=== PATIENT | male | born 2005 | race Caucasian/White ===

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

== ENCOUNTER 2025-01-01 18:55 | Emergency (ER) | payer OTHER, SELFPAY ==
--- NOTE | ~2025-01-01 | XR_ITS ---
EXAMINATION: XR chest 1V portable 01/01/2025 22:02 INDICATION: Viral syndrome PROCEDURE: AP portable chest COMPARISON: No prior studies for comparison. FINDINGS: The lungs are clear. The cardiomediastinal silhouette is within normal limits. There are no pleural effusions. There is no pneumothorax suspected. IMPRESSION: 1: NO ACUTE CARDIOPULMONARY DISEASE. Reviewed, dictated and finalized at location O.
--- NOTE | ~2025-01-01 | CT_ITS ---
EXAMINATION: CT abdomen pelvis w con DATE: 01/01/2025 22:08 INDICATION: Left upper quadrant abdominal pain TECHNIQUE: Computed tomography (CT) of the abdomen and pelvis was performed with 100 mL Omnipaque-350 intravenous contrast. Automated exposure control and iterative reconstruction technique were employed. The dose-length product was 224.55 mGy-cm. COMPARISON: None FINDINGS: Lung bases are clear. Visualized inferior heart appears normal. No pericardial or pleural effusion. Liver, gallbladder, spleen, pancreas, bilateral adrenal glands and kidneys are normal. Bowels including the appendix are normal. Bladder is normal. No free intraperitoneal gas or fluid. No pathologically enlarged abdominal or pelvic lymphadenopathy. Bones are unremarkable. IMPRESSION: 1. No acute intra-abdominal/pelvic process. Reviewed, dictated and finalized at location A.
--- OUTSIDE RECORDS SUMMARY | 2025-01-01 17:30 | XMS_ITS | Encounter Summary ---
Author Organization [facility] Healthcare Address [address] [place] [address] Care Team Providers Care Passport Support Associate Name Role Phone Johana De La O MD Primary Care Provider [phone] Reason for Visit * Reason Comments Cold Symptoms Vomiting, waking up drenched in sweat, abdominal pain, Was smoking but quit cold turkey 5 days ago, Was exposed to mono, he lifts weightWeight loss in the last week, 10 pounds, Encounter Details Date Type Department Care Team (Late st Contact Info) Description 01/01/2025 5:30 PM CDT Office Visit 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 Gender Identity Not on file Sexual Orientation Not on file documented as of this encounter Last Filed Vital Signs Vital Sign Reading Time Taken Comments Blood Pressure 126/79 01/01/2025 5:56 PM CDT Pulse 73 01/01/2025 5:56 PM CDT Temperature 36.8 C (98.3 F) 01/01/2025 5:56 PM CDT Respiratory Rate 18 01/01/2025 5:56 PM CDT Oxygen Saturation 98% 01/01/2025 5:56 PM CDT Inhaled Oxygen Concentration - - Weight 69.3 kg (152 lb 11.2 oz) 01/01/2025 5:56 PM CDT Height 185.4 cm (6' 0.99) 01/01/2025 5:56 PM CD T Body Mass Index 20.15 01/01/2025 5:56 PM CDT documented in this encounter Plan of Treatment Not on file documented as of this encounter Visit Diagnoses Diagnosis Abdominal pain- Primary Abdominal pain, unspecified site Chest pain, unspecified type Syncope, unspecified syncope type Exposure to mononucleosis syndrome Withdrawal from other stimulant drug documented in this encounter Historical Medications * This list may reflect changes made after this encounter. ALPRAZolam (XANAX) 0.25 mg tablet Take 1 tablet (0.25 mg total) by mouth nightly as needed for anxiety added in this encounter Care Teams Passport Support Associate Relationship Specialty Start Date End Date Johana De La O MD [address] [place] [address] PCP - General Pediatrics 02/16/19 documented as of this encounter
--- OUTSIDE RECORDS SUMMARY | 2025-01-01 17:30 | XMS_ITS | Encounter Summary ---
Author Organization [facility] Healthcare Address [address] [place] [address] Care Team Providers Care Side Guider Name Role Phone Johana De La O MD Primary Care Provider [phone] Reason for Visit * Reason Comments Cold Symptoms Vomiting, waking up drenched in sweat, abdominal pain, Was smoking but quit cold turkey 5 days ago, Was exposed to mono, he lifts weightWeight loss in the last week, 10 pounds, Encounter Details Date Type Department Care Team (Late st Contact Info) Description 01/01/2025 5:30 PM CDT Office Visit [facility] at [address] [address] Elizabeth Rogers NP [address] [place] [address] [address] [place] [address] Abdominal pain (Primary Dx); Chest pain, unspecified type; Syncope, unspecified syncope type; Exposure to mononucleosis syndrome; Withdrawal from other stimulant drug Social History Tobacco Use Types Packs/Day Years Used Date Smoking Tobacco: Never Smokeless Tobacco: Never Sex and Gender Information Value Date Recorded Sex Assigned at Not on file 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
--- OUTSIDE RECORDS SUMMARY | 2025-01-01 18:57 | XMS_ITS | Clinical Summary ---
Author Organization [facility] Address [address] [place] [address] Phone Care Team Providers Care Service Desk Manager Name Role Phone Kassi Gill MD Primary Care Provider [phone] Allergies No known active allergies Medications No known medications Family History Relation Name Status Comments Brother Alive Father Alive Mother Alive Social History Tobacco Use Types Packs/Day Years Used Date Smoking Tobacco: Never Smokeless Tobacco: Never Alcohol Use Standard Drinks/Week Comments Never 0 (1 standard drink = 0.6 oz pur e alcohol) Adolescent Education Answer Date Record ed Getting School Help Needed Not on file 12/01 Sex and Gender Information Value Date Recorded Sex Assigned at Not on file 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 Gender Identity Not on file Sexual Orientation Not on file Last Filed Vital Signs Vital Sign Reading Time Taken Comments Blood Pressure 134/88 07/02/2021 12:59 PM CANNING MACHINE OPERATOR Pulse 72 07/02/2021 12:59 PM CANNING MACHINE OPERATOR Temperature 36.7 C (98.1 F) 07/02/2021 12:59 PM CANNING MACHINE OPERATOR Respiratory Rate 12 07/02/2021 12:59 PM CANNING MACHINE OPERATOR Oxygen Saturation 100% 07/02/2021 12:59 PM CANNING MACHINE OPERATOR Inhaled Oxygen Concentration - - Weight 59 kg (130 lb 1.1 oz) 07/02/2021 12:59 PM CANNING MACHINE OPERATOR Height 177.8 cm (5' 10) 07/02/2021 12:59 PM CANNING MACHINE OPERATOR Body Mass Index 18.66 07/02/2021 12:59 PM CANNING MACHINE OPERATOR Plan of Treatment Health Maintenance Due Date Last Done Comments CHLAMYDIA SCREENING (ANNUAL) 11-24 YEARS 07/26/2015 HPV VACCINES (1 - Male 3-dose series) 07/26/2019 DTAP/TDAP/TD VACCINES (1 - Tdap) 07/26/2023 HEPATITIS B VACCINES (1 of 3 - 19+ 3-dose series) 06/28 INFLUENZA VACCINE (#1) 2024 Insurance BENEFIT PLANS BENEFIT PLANS Care Teams Service Desk Manager Relationship Specialty Start Date End Date Kassi Gill MD [address] [place] [address] PCP - General Pediatrics 07/02/21
--- OUTSIDE RECORDS SUMMARY | 2025-01-01 18:57 | XMS_ITS | Clinical Summary ---
Author Organization [address] [address] Care Team Providers Care Pressure Washer Name Role Phone Johana De La O MD Primary Care Provider [phone] Allergies No known active allergies Medications sertraline (ZOLOFT) 100 mg tablet Take 1 tablet (100 mg total) by mouth daily 4 Active benzonatate (TESSALON) 200 mg capsuleIndicatio ns:Acute lower respiratory infection Take 1 capsule (200 mg total) by mouth 3 (three) times a day as needed for cough keep tessalon out of reach of children, especially children under the age of 10, due to possible serious risk such as if ingested by children under the age of 10. 30 capsule 4 Active Additional Information Patient not taking.Reported on 01/01/2025 ALPRAZolam (XANAX) 0.25 mg tablet Take 1 tablet (0.25 mg total) by mouth nightly as needed for anxiety Active Active Problems Problem Noted Date Diagnosed Date Open fracture of tuft of distal phalanx of finge r 11/19/2020 Encounters Date Type Department Care Team Description 01/01/2025 5:30 PM CDT Office Visit [facility] at [address] [address] Elizabeth Rogers NP Abdominal pain (Primary Dx); Chest pain, unspecified type; Syncope, unspecified syncope type; Exposure to mononucleosis syndrome; Withdrawal from other stimulant drug from Last 3 Months Medical History Medical History Date Comments Asthma Family History Medical History Relation Name Comments No Known Problems Father No Known Problems Mother Relation Name Status Comments Father Alive Mother Alive Social History Tobacco Use Types Packs/Day Years Used Date Smoking Tobacco: Never Smokeless Tobacco: Never Sex and Gender Information Value Date Recorded Sex Assigned at Not on file 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 Gender Identity Not on file Sexual Orientation Not on file Obstetrics History Last Filed Vital Signs Vital Sign Reading [...] Mass Index 20.15 01/01/2025 5:56 PM CDT Plan of Treatment Health Maintenance Due Date Last Done Comments Depression Screening 2004 Hepatitis C Screening 2004 Meningococcal B Vaccine (1 o f 2 - Standard) 2020 Regular Well Visit/Exam 18-64 2022 Covid-19 Vaccine (2 - 2024-2 6 season) 2024 09/17/2020 Influenza Vaccine (#1) 2024 0, 03/25/2019, 03/10/2018, Additional history exists DTaP/Tdap/Td Vaccine (7 - Td or Tdap) 11/22/2025 11/23/2015, 07/07/2009, 10/27/2005, Additional history exists Hepatitis B Screening Completed 01/30/2005 , 2004, 2004 Pneumococcal vaccine <65 Completed 006, 01/30/2005, 2004, Additional history exists Varicella Vaccines Completed 07/07/2009, 08/01/2005 HPV Vaccines Completed 11/30/2016, 03/29, 11/23/2015 Meningococcal Vaccine Completed 12/20/2020, 016 Insurance [facility] [id number] [facility] [id number] Care Teams Pressure Washer Relationship Specialty Start Date End Date Johana De La O MD [address] [place] [address] PCP - General Pediatrics 02/16/19
[2025-01-01 19:00] VITALS: PULSE 56; RESP 20; TEMP 37.1; O2SAT 100
[2025-01-01 21:08] VITALS: BP 134/78; PULSE 66; RESP 13; O2SAT 100
[2025-01-01 21:29] LABS: Hematocrit 45.0 % (42.0-52.0); Hemoglobin 15.5 g/dL (14.0-18.0); Immature Granulocyte Percent A 0.3 % (0-0.5); Lymphocytes Absolute Auto 1.63 K/mm3 (0.9-3.2); Mean Corpuscular HGB Conc 34.4 g/dl (32-36); Mean Corpuscular Hemoglobin 28.8 pg (26-34); Mean Corpuscular Volume 83.5 fl (80-100); Nucleated Red Blood Cells Absolute Auto 0.000 K/mm3 (0.0-0.012); Nucleated Red Blood Cells Perc 0.0 % (0.0-0.2); Platelet Count Result 330 k/mm3 (150-375); Red Blood Count 5.39 M/mm3 (4.6-6.20); White Blood Count 7.4 K/mm3 (4.5-10.0)
[2025-01-01 21:31] LABS: Add Urine Microscopic? NO; Appearance Urine Clear (Clear); Glucose Urine UA Negative (Negative); Leukocyte Esterase Ur Negative LEU/UL (Negative); Nitrate Urine Negative (Negative); Specific Grav Ur 1.024 (1.001-1.035)
[2025-01-01 21:49] LABS: Alanine Aminotransferase 30 U/L (6-50); Albumin Level 5.3 g/dL (3.5-5.1); Alkaline Phosphatase 108 U/L (38-126); Anion Gap 10 mmol/L (4-12); Aspartate Amino Transferase 37 U/L (17-59); Bilirubin,Total 0.7 mg/dL (0.2-1.3); Blood Urea Nitrogen 18 mg/dL (9-20); Calcium 9.9 mg/dL (8.4-10.2); Carbon Dioxide 28 mmol/L (22-30); Chloride 98 mmol/L (98-107); Estimated CRCL calculation 110 ml/min; Estimated Glomerular Filt Rate > 60; Glucose 95 mg/dL (65-110); Lipase 117 U/L (23-300); Magnesium 2.2 mg/dL (1.6-2.3); Potassium 4.2 mmol/L (3.4-5.0); Sodium 136 mmol/L (137-145); Total Protein 9.0 g/dL (6.3-8.2)
--- NOTE | 2025-01-01 21:53 | ECG_ITS ---
Test Date: 2025-01-01 22:21:02 Measurements Intervals [place] Rate: 60 P: 58 AL: 161 QRS: 75 QRSD: 111 T: 46 QT: 473 QTc: 474 Interpretive Statements SINUS RHYTHM POSSIBLE LEFT ATRIAL ENLARGEMENT [-0.1mV P-WAVE IN V1/V2] INCOMPLETE RIGHT BUNDLE BRANCH BLOCK [90+ ms QRS DURATION, TERMINAL R IN V1/V2, 40+ ms S IN I/aVL/V4/V5/V6] WITH REPOLARIZATION CHANGES PROLONGED QT INTERVAL No previous ECG available for comparison Electronically Signed On 01-02-2025 10:52:04 CDT by Flakito Billings M.D.
--- NOTE | 2025-01-01 21:54 | ED_ITS ---
HPI - Abdominal Pain General Chief Complaint: Abdominal Pain Stated Complaint: abdominal pain Time Seen by Provider: 01/01/25 21:03 History of Present Illness HPI narrative: Patient is 1-year-old male who presents to the emergency department this evening with multiple complaints. Mother states that he has been feeling generally sick for the past couple of days. Patient's best friend has been having similar symptoms and his primary care physician believes that he has mono despite testing negative for it. Mom wants the patient tested for mono. Symptoms include generalized body aches, chills, nausea, vomiting and diarrhea. Patient states that his best friend also has all the same symptoms. Otherwise patient denies any additional symptoms or concerns. Related Data Home Medications ?Medication ?Instructions ?Recorded ?Confirmed ?Last Taken ?Type No Home Medications 01/17/21 01/17/21 U nknown History Allergies Allergy/AdvReac Type Severity Reaction Status Date / Time No Known Allergies Allergy Unknown Verified 01/01/25 18:57 Review of Systems 2 Review of Systems: All systems are reviewed and are negative unless stated otherwise in the HPI. FOR[facility]LY [facility] Past Medical History Medical History No significant medical problems Surgical History Surgical History H/O inguinal hernia repair Social History Social History Smoking status: Never smoker Alcohol intake: never Substance use: never Living arrangements: with family Occupation/Education: student Gender identity (if verbalized by the patient): Male Exam 2 Narrative: General: Alert, awake, afebrile, in no acute distress. HEENT: PERRL, no rhinorrhea, no post nasal drip, oropharynx clear. Neck: Trachea midline, no JVD, no lymphadenopathy. Cardiovascular: Regular rate and rhythm, no murmurs, rubs or gallops, no peripheral edema. Respiratory: Clear to auscultation bilaterally, no tachypnea, no wheezing, no rhonchi, no rubs, no respiratory distress. Abdomen: Soft, nontender, nondistended, no rebound, no guarding, no peritoneal signs. Musculoskeletal: No joint swelling or deformity, normal muscle tone. Skin: No rashes or petechia, no signs of infection. Psychiatric: Alert and oriented, normal behavior and judgment for situation. Neurological: Alert and oriented to person, place, and time. Follows all commands. No focal deficits, speech is clear and fluent. Course Vital Signs Vital signs: Vital Signs Temperature 98.7 F 01/01/25 19:00 Pulse Rate 56 L 01/01/25 19:00 Respiratory Rate 20 01/01/25 19:00 Pulse Oximetry 100 01/01/25 19:00 Oxygen Delivery Room Air 01/01/25 19:00 Temperature 98.7 F 01/01/25 19:00 Pulse Rate 59 L 01/01/25 22:21 Respiratory Rate 18 01/01/25 22:21 Blood Pressure 133/77 01/01/25 22:21 Pulse Oximetry 100 01/01/25 22:21 Oxygen Delivery Room Air 01/01/25 21:08 MDM - Abdominal Pain MDM Narrative Medical decision making narrative: The patient was evaluated by myself in the emergency department. History is obtained from patient who is an independent historian and physical exam was performed. External medical records were reviewed at this time. IV was established and pertinent tests were ordered. Patient was administered 4 mg IV Zofran 1 L IV fluid bolus with normal saline. EKG was obtained which revealed sinus rhythm rate of 60 beats per minute. No ST changes, T wave inversions or evidence of acute ischemia. EKG was independently interpreted by me and is currently pending official cardiology read. Laboratory results obtained revealing no acute process. Urinalysis unremarkable. Monospot test negative. Viral swab negative for COVID/influenza/RSV. Imaging studies obtained included CXR and CT abdomen pelvis with IV contrast which was independently interpreted by me revealing no acute process, which is pending final radiology interpretation. Differential diagnosis considerations include acute viral syndrome, dehydration, gastroenteritis, electrolyte derangements, pancreatitis, mononucleosis. Comorbidities impacting this visit include none. I have evaluated and discussed social determinants of health with the patient that could potentially impact subsequent diagnosis and treatment plans. On repeat assessment of the patient, reevaluation revealed that the patient is doing well and is in no acute distress. Patient symptoms have improved since he arrived to our emergency department. Repeat vital signs were all reviewed and noted to be stable. Differential diagnosis and treatment plan were discussed with the patient at bedside. Patient agrees with discussion and after shared medical decision making agrees with discharge. All questions were answered to the patient's satisfaction. Patient will follow up with his PCP in 3-5 days. Patient was provided with strict return precautions and instructed to return to the emergency department if any new or worsening symptoms develop. The patient was discharged in stable condition. Lab Data 01/01/25 21:20 01/01/25 21:20 Labs: Lab Results 01/01/25 01/01/25 Range/Units 21:20 21:56 WBC 7.4 (4.5-10.0) K/mm3 RBC 5.39 (4.6-6.20) M/mm3 Hgb 15.5 (14.0-18.0) g/dL Hct 45.0 (42.0-52.0) % MCV 83.5 (80-100) fl MCH 28.8 (26-34) pg MCHC 34.4 (32-36) g/dl RDW 12.0 (11.5-14.5) % Plt Count 330 (150-375) k/mm3 MPV 9.2 (7.4-10.4) fl Immature Gran % (Auto) 0.3 (0-0.5) % Neut % (Auto) 67.6 (45.5-73.1) % Lymph % (Auto) 22.0 (18.3-44.2) % Troup % (Auto) 8.9 H (2.6-8.5) % Eos % (Auto) 0.5 (0-4.4) % Baso % (Auto) 0.7 (0.2-1.2) % Lymph # (Auto) 1.63 (0.9-3.2) K/mm3 Troup # (Auto) 0.7 H (0.1-0.6) K/mm3 Eos # (Auto) 0.0 (0-0.3) K/mm3 Baso # (Auto) 0.1 (0.0-0.1) K/mm3 Abs Immat Gran (auto) 0.02 (0.00-0.031) K/mm3 Absolute Neuts (auto) 5.0 (1.3-6.7) K/mm3 Absolute Nucleated RBC 0.000 (0.0-0.012) K/mm3 Nucleated RBC % 0.0 (0.0-0.2) % Sodium 136 L (137-145) mmol/L Potassium 4.2 (3.4-5.0) mmol/L Chloride 98 (98-107) mmol/L Carbon Dioxide 28 (22-30) mmol/L Anion Gap 10 (4-12) mmol/L BUN 18 (9-20) mg/dL Creatinine 0.92 (0.7-1.3) mg/dL Estim Creat Clear Calc 110 ml/min Estimated GFR > 60 (59 - ) Glucose 95 (65-110) mg/dL Calcium 9.9 (8.4-10.2) mg/dL Magnesium 2.2 (1.6-2.3) mg/dL Total Bilirubin 0.7 (0.2-1.3) mg/dL AST 37 (17-59) U/L ALT 30 (6-50) U/L Alkaline Phosphatase 108 (38-126) U/L Total Protein 9.0 H (6.3-8.2) g/dL Albumin 5.3 H (3.5-5.1) g/dL Lipase 117 (23-300) U/L Urine Color Yellow (Yellow) Urine Appearance Clear (Clear) Urine pH 6.5 (5.0-9.0) Ur Specific Commerce 1.024 (1.001-1.035) Urine Protein Negative (Negative) mg/dL Urine Glucose (UA) Negative (Negative) mg/dL Urine Ketones Negative (Negative) mg/dL Ur Blood (Man) Negative (Negative) Urine Nitrate Negative (Negative) Urine Bilirubin Negative (Negative) Urine Urobilinogen 0.2 (<2.0) mg/dL Leukocyte Esterase Rfl Negative (Negative) ADAL/UL Monoscreen Negative (Negative) Influenza A (RT-PCR) Negative (Negative) Influenza B (RT-PCR) Negative (Negative) RSV (RT-PCR) Negative (Negative) SARS-CoV-2 RNA (RT-PCR) Negative (Negative) Imaging Data Radiologist's impression: ITS Impressions Chest X-Ray 01/01/25 22:05 IMPRESSION: 1: NO ACUTE CARDIOPULMONARY DISEASE. Discharge Plan Discharge Clinical Impression: Acute viral syndrome, Nausea vomiting and diarrhea Patient Disposition: Home Condition: Improved Instructions: Antibiotic Form, Gastroenteritis (ED), Viral Syndrome (ED) Additional Instructions: Please follow-up with the family doctor within the next 3-5 days. Return to the emergency department if any new or worsening symptoms develop. Patient Language: Emirati Prescriptions: No Action No Home Medications Follow-up/Referrals: Kassi Gill MD [Primary Care Provider, Pediatrics] - 3 Days Time of Disposition: 23:40
[2025-01-01 22:08] LABS: Negative Monotest Control Negative (Negative); Positive Monotest Control Positive (Positive)
[2025-01-01] MEDS: SODIUM CHLORIDE 0.9% IV 1,000 ML 999 ML IV CONT (22:17)
[2025-01-01] MEDS: ONDANSETRON INJ 4 MG/2 ML VIAL IV PUSH (22:17)
[2025-01-01 22:21] VITALS: BP 133/77; PULSE 59; RESP 18; O2SAT 100
[2025-01-01 22:40] LABS: Influenza A QL RT-PCR Negative (Negative); Influenza B QL RT-PCR Negative (Negative); RSV RNA, RT-PCR Negative (Negative); SARS-CoV-2 RNA PCR Negative (Negative)
--- OUTSIDE RECORDS SUMMARY | 2025-01-01 22:52 | XMS_ITS | Clinical Summary ---
Author Organization [address] [address] Care Team Providers Care Cloth Measurer Name Role Phone Johana De La O MD Primary Care Provider Allergies No known active allergies Medications sertraline [...] Description 01/01/2025 5:30 PM CDT Office Visit [facility] at [address] [address] Elizabeth Rogers NP Abdominal pain [...] on file Legal Sex Male 6:18 AM [employer] Gender Identity Not on file Sexual Orientation [...] 11/23/2015 Meningococcal Vaccine Completed 12/20/2020, 016 Insurance [facility] [id number] [facility] [id number] Care Teams Cloth Measurer Relationship Specialty Start Date End Date Johana De La O MD [address] [place] [address] PCP - General Pediatrics 02/16/19
--- OUTSIDE RECORDS SUMMARY | 2025-01-01 22:52 | XMS_ITS | Clinical Summary ---
Author Organization [facility] Address [address] [place] [address] Phone Care Team Providers Care Small Animal Veterinarian Name Role Phone Kassi Gill MD Primary Care Provider [phone] Allergies No known active allergies Medications No [...] on file Legal Sex Male 12:54 PM [employer]LLOCK MAK[employer] Gender Identity Not on file Sexual Orientation Not on file Last Filed Vital Signs Vital Sign Reading Time Taken Comments Blood Pressure 134/88 07/02/2021 12:59 PM [employer]LLOCK [employer] Pulse 72 07/02/2021 12:59 PM [employer]LLOCK [employer] Temperature 36.7 C (98.1 F) 07/02/2021 12:59 PM [employer]LLOCK [employer]KER Respiratory Rate 12 07/02/2021 12:59 PM [employer]LLOCK [employer]KER Oxygen Saturation 100% 07/02/2021 12:59 PM [employer]LLOCK [employer] Inhaled Oxygen Concentration - - Weight 59 kg (130 lb 1.1 oz) 07/02/2021 12:59 PM HOLLOCK MAKER Height 177.8 cm (5' 10) 07/02/2021 12:59 PM [employer]LLOCK [employer] Body Mass Index 18.66 07/02/2021 12:59 PM HOLLOCK MAKER Plan of Treatment Health Maintenance Due Date Last Done Comments CHLAMYDIA SCREENING (ANNUAL) 11-24 YEARS 07/26/2015 HPV VACCINES (1 - Male 3-dose series) 07/26/2019 DTAP/TDAP/TD VACCINES (1 - Tdap) 07/26/2023 HEPATITIS B VACCINES (1 of 3 - 19+ 3-dose series) 06/28 INFLUENZA VACCINE (#1) 2024 Insurance BENEFIT PLANS BENEFIT PLANS Care Teams Small Animal Veterinarian Relationship Specialty Start Date End Date Kassi Gill MD [address] [place] [address] PCP - General Pediatrics 07/02/21
[2025-01-02 00:05] VITALS: BP 138/86; PULSE 91; RESP 19; O2SAT 98
== END 2025-01-02 00:06 | disposition home or self-care (01) ==
PROVIDERS: Emergency Provider Emergency Medicine; PCP Pediatrics
DX: B34.9 Viral infection, unspecified (principal); R11.2 Nausea with vomiting, unspecified; R19.7 Diarrhea, unspecified; Z20.822 Contact with and (suspected) exposure to COVID-19
CPT/HCPCS: 36415; 71045; 74177; 80053; 81003; 83690; 83735; 85025; 86308; 87637; 93005; 96361; 96374; 99284; J2405; J7030; Q9967